=== PATIENT | female | born 1980 | race Caucasian/White ===

== ENCOUNTER 2020-08-09 18:22 | Emergency (ER) | payer OTHER, SELFPAY ==
[2020-08-09 18:24] VITALS: BP 120/68; PULSE 76; RESP 17; TEMP 36.1; O2SAT 99; BMI 33.5
--- NOTE | 2020-08-09 18:56 | ED.EAR ---
HPI - Ear Problem General Chief complaint: Ear Problems Stated complaint: sinus pain, ear pain Time Seen by Provider: 08/09/20 18:56 Source: patient Mode of arrival: ambulatory Limitations: no limitations History of Present Illness HPI Narrative: States she is having sinus pain in the frontal forehead area which she annular gets and often times this is accompanied with ear pain/ear infection she called her primary care doctor who gave her a Z-Urbano however symptoms continue just finished a Z-Urbano yesterday. She states she was tested for COVID 2 weeks ago and does not mind getting tested today. Denies any fever chills no neck pain. No chest pain or shortness of breath. Location: right ear Severity: moderate Discharge from ear: no Treatment prior to arrival: other (Azithromycin Z-Urbano) Related Data Previous Rx's Medication Instructions Recorded amoxicillin 500 mg PO Q12H 10 Days #20 tab 08/09/20 Allergies Allergy/AdvReac Type Severity Reaction Status Date / Time tramadol [TRAMADOL] Allergy Intermediate ON Unverified 05/16/20 15:39 WELLBUTIIN paroxetine [Paxil] Allergy Unknown rash Verified 06/19/13 00:00 acetaminophen [From TYLENOL] AdvReac Unknown UPSET Unverified 05/16/20 15:39 STOMACH/VOMITING garlic AdvReac Unknown UPSET Unverified 05/16/20 15:39 STOMACH From PAXIL Allergy Unknown UNKNOWN Uncoded 05/16/20 15:39 Review of Systems Review of Systems: Constitutional: No Weight loss, No Fever, No Chills, No Night Sweats, No Fatigue, No Malaise ENT/Mouth: No Hearing loss, + r Ear Pain, No Nasal Congestion, + Sinus Pain, No Hoarseness, No sore throat, No Rhinorrhea, No Swallowing Difficulty Eyes: No Eye Pain, No Swelling, No Redness, No Foreign Body, No Discharge, No Vision Changes Cardiovascular: No Chest Pain, No SOB, No Dyspnea on Exertion, No Orthopnea, No Edema, No Palpitations Respiratory: No Cough, No Sputum, No Wheezing, No Smoke Exposure, No Dyspnea Gastrointestinal: No Nausea, No Vomiting, No Diarrhea, No Constipation, No abdominal Pain, No Hematochezia, No Melena Genitourinary: no irregular bleeding, No Dysuria, No Urinary Frequency, No Hematuria, No Urinary Incontinence Musculoskeletal: No joint pain, No Myalgias, No Joint Swelling Skin: No Skin Lesions, No rash Neuro: No Weakness, No Numbness, No Paresthesias, No Loss of Consciousness, No Dizziness, No Headache Psych: No Social Issues Heme/Lymph: No Bruising, No Bleeding,No Lymphadenopathy Endocrine: No Polyuria, No Polydipsia, No Temperature Intolerance Yes all other systems are reviewed and are negative PMFSH Past Medical History Surgical History (Updated 08/09/20 @ 18:27 by Joey Swift) H/O tubal ligation H/O: hysterectomy Physical Exam Vital Signs: Vital Signs: Last Vital Signs Temp 97 F 08/09/20 18:24 Pulse 76 08/09/20 18:24 Resp 17 08/09/20 18:24 BP 120/68 08/09/20 18:24 Pulse Ox 99 08/09/20 18:24 Body Mass Index 33.5 reviewed Const: General: cooperative and healthy appearing; No acute distress or intoxicated appearing Nutritional Appearance: average body habitus Orientation/consciousness: patient oriented x3 HENMT: Head: Yes normal to inspection Ears: hearing grossly normal bilaterally and TM normal on the right (Slightly bulging with erythema) Face and sinus: Yes face symmetric and Yes Facial tenderness on exam of face and sinuses (Over the bilateral frontal sinuses) Eyes: General: appearance normal, both eyes and all related structures Visual Nguyen: normal visual nguyen by confrontation Neck: Neck: Yes normal visual inspection, No positive Brudzinski's sign, No positive Kernig's sign and No tender Thyroid: Thyroid normal Chest: Chest palpation & inspection: normal inspection of the chest Resp: Effort & Inspection: normal respiratory effort Cardio: Jugular venous distension: no JVD Skin: General skin exam: no rashes or lesions noted Neuro: General: patient oriented x3 Extrem: General: Yes normal to inspection Discharge Plan Discharge Clinical Impression: Otitis media, Acute bacterial sinusitis Patient Disposition: Home, Self-Care Instructions: Sinusitis (ED), Ear Infection (ED) Additional Instructions: Take medication as prescribed We have repeated her COVID test this may take up to 3-5 days to result we will call with results even if negative or positive Self-isolation Social distancing Remain out of work until you have a negative COVID test Thank you Prescriptions: New amoxicillin 500 mg tablet 500 mg PO Q12H 10 Days Qty: 20 RF: 0 Referrals: Physician,Unknown [Primary Care Provider] - 1 week (Phone visit with primary care ) Stand Alone Forms: Work/School Release
== END 2020-08-09 19:34 | disposition home or self-care (01) ==
PROVIDERS: Nurse Practitioner Primary Care; Emergency Provider Internal Medicine; PCP Pediatrics
DX: H66.93 Otitis media, unspecified, bilateral (principal); J01.90 Acute sinusitis, unspecified; Z20.828 Contact with and (suspected) exposure to other viral communicable diseases
CPT/HCPCS: 99283; 99284; U0003

== ENCOUNTER 2021-10-09 11:52 | Outpatient (REF) | payer OTHER, SELFPAY ==
--- NOTE | ~2021-10-09 | XR_ITS ---
EXAMINATION: XR LUMBOSACRAL SPINE XR RIGHT ELBOW XR LEFT KNEE CLINICAL INFORMATION: Trauma. Fell on ice. COMPARISON: None TECHNIQUE: 5 views of the lumbosacral spine, 3 views of the right elbow and 3 views of the left knee were obtained. FINDINGS: Lumbosacral spine: Mild mid lumbar rotatory levoscoliosis is present. The heights of the lumbar vertebrae are within normal limits. Mild degenerative disc disease is noted at L5-S1 and mild facet degenerative arthritic is at lower lumbar spine. Intervertebral disc heights are otherwise unremarkable. The paraspinal soft tissues are unremarkable. Right elbow: The bony alignments are intact. The cortices are intact. Articular margins, joint space appear unremarkable. Mild soft tissue swelling is noted overlying the olecranon process, may represent soft tissue injury versus olecranon bursitis. Left knee: The bony alignments are intact. The cortices are intact. Articular margins, joint space appear unremarkable. No evidence of any joint effusion. Soft tissues are unremarkable. XR/XR elbow RT min 3V IMPRESSION: 1. No radiographic evidence of any lumbosacral spine fracture. Mild degenerative disc disease at L5-S1 and mild facet degenerative arthritic changes at lower lumbar spine. 2. Radiographically unremarkable left knee. 3. Mild soft tissue swelling overlying the olecranon process of the right ulna, may represent soft tissue injury versus olecranon bursitis.
--- NOTE | ~2021-10-09 | XR_ITS ---
EXAMINATION: XR LUMBOSACRAL SPINE XR RIGHT ELBOW XR LEFT KNEE CLINICAL INFORMATION: Trauma. Fell on ice. COMPARISON: None TECHNIQUE: 5 views of the lumbosacral spine, 3 views of the right elbow and 3 views of the left knee were obtained. FINDINGS: Lumbosacral spine: Mild mid lumbar rotatory levoscoliosis is present. The heights of the lumbar vertebrae are within normal limits. Mild degenerative disc disease is noted at L5-S1 and mild facet degenerative arthritic is at lower lumbar spine. Intervertebral disc heights are otherwise unremarkable. The paraspinal soft tissues are unremarkable. Right elbow: The bony alignments are intact. The cortices are intact. Articular margins, joint space appear unremarkable. Mild soft tissue swelling is noted overlying the olecranon process, may represent soft tissue injury versus olecranon bursitis. Left knee: The bony alignments are intact. The cortices are intact. Articular margins, joint space appear unremarkable. No evidence of any joint effusion. Soft tissues are unremarkable. XR/XR knee LT 3V IMPRESSION: 1. No radiographic evidence of any lumbosacral spine fracture. Mild degenerative disc disease at L5-S1 and mild facet degenerative arthritic changes at lower lumbar spine. 2. Radiographically unremarkable left knee. 3. Mild soft tissue swelling overlying the olecranon process of the right ulna, may represent soft tissue injury versus olecranon bursitis.
--- NOTE | ~2021-10-09 | XR_ITS ---
EXAMINATION: XR LUMBOSACRAL SPINE XR RIGHT ELBOW XR LEFT KNEE CLINICAL INFORMATION: Trauma. Fell on ice. COMPARISON: None TECHNIQUE: 5 views of the lumbosacral spine, 3 views of the right elbow and 3 views of the left knee were obtained. FINDINGS: Lumbosacral spine: Mild mid lumbar rotatory levoscoliosis is present. The heights of the lumbar vertebrae are within normal limits. Mild degenerative disc disease is noted at L5-S1 and mild facet degenerative arthritic is at lower lumbar spine. Intervertebral disc heights are otherwise unremarkable. The paraspinal soft tissues are unremarkable. Right elbow: The bony alignments are intact. The cortices are intact. Articular margins, joint space appear unremarkable. Mild soft tissue swelling is noted overlying the olecranon process, may represent soft tissue injury versus olecranon bursitis. Left knee: The bony alignments are intact. The cortices are intact. Articular margins, joint space appear unremarkable. No evidence of any joint effusion. Soft tissues are unremarkable. XR/XR lumbar spine 4V min IMPRESSION: 1. No radiographic evidence of any lumbosacral spine fracture. Mild degenerative disc disease at L5-S1 and mild facet degenerative arthritic changes at lower lumbar spine. 2. Radiographically unremarkable left knee. 3. Mild soft tissue swelling overlying the olecranon process of the right ulna, may represent soft tissue injury versus olecranon bursitis.
== END 2021-10-09 11:53 | disposition home or self-care (01) ==
LOC: HO.XRAY 11:52
PROVIDERS: PCP Emergency Medicine; Visit Provider Pediatrics
DX: M25.521 Pain in right elbow (principal); M25.562 Pain in left knee; M54.42 Lumbago with sciatica, left side
CPT/HCPCS: 72110; 73080; 73562

== ENCOUNTER 2023-12-03 12:01 | Outpatient (REF) | payer OTHER, SELFPAY ==
[2023-12-03 14:31] LABS: MANUAL DIFF FLAG NO
[2023-12-03 14:38] LABS: Basophils Percent Auto 0.3 % (0-2); Eosinophils Absolute Auto 0.2 X10*3/uL (0.0-0.4); Eosinophils Percent Auto 1.6 % (0-4); Hematocrit 36.1 % (37.0-47.0); Imm Gran Abs Auto 0.03 X10*3/uL (0.00-0.03); Imm Gran Pct Auto 0.3 % (0.0-0.4); Lymphocytes Absolute Auto 2.7 X10*3/uL (1.2-4.9); Lymphocytes Percent Auto 28.3 % (20-40); Mean Corpuscular HGB Conc 30.5 g/dl (31.0-35.0); Mean Corpuscular Hemoglobin 25.6 pg (27.0-33.0); Mean Platelet Volume 10.2 fL (9.4-12.3); Monocytes Absolute Auto 0.8 X10*3/uL (0.1-1.2); Monocytes Percent Auto 8.3 % (2-11); Neutrophils Absolute Auto 5.9 x10*3/uL (2.0-8.3); Neutrophils Percent Auto 61.2 % (45-73); Platelet Count 237 X10*3/uL (160-400); Red Cell Distribution Width 16.1 % (11.0-16.0); White Blood Count 9.6 X10*3/uL (4.8-10.8)
[2023-12-03 15:13] LABS: Alanine Aminotransferase 58 U/L (0-31); Albumin Level 3.7 g/dL (3.5-5.0); Alkaline Phosphatase 95 U/L (39-117); Anion Gap 11 (12-20); Aspartate Amino Transferase 39 U/L (5-31); Bilirubin Total 0.3 mg/dL (0.0-1.0); Blood Urea Nitrogen 13 mg/dL (9-16); Carbon Dioxide 27 mmol/L (22-29); Chloride 105 mmol/L (96-108); Estimated Glomerular Filt Rate > 60; Glucose Random 72 mg/dL (60-115); Potassium 3.8 mmol/L (3.3-5.1); Sodium 139 mmol/L (135-145); Total Protein 7.2 g/dL (6.5-8.0)
[2023-12-03 15:33] LABS: TSH reflex Free T4 1.47 uIU/mL (0.32-4.0)
[2023-12-03 17:14] LABS: CT PCR NOT DETECTED (Not Detect.); NG PCR NOT DETECTED (Not Detect.)
[2023-12-04 09:33] LABS: HBS Num1 147.63 mIU/mL (0-7.99); HBc Num1 0.14 S/CO (0.00-0.79); HBsAGNum1 0.34 S/CO (0.00-0.99); HIV AB/AG Nonreactive (Nonreactive); HIV Num 1 0.09 S/CO (0.00-0.99); Hepatitis A Antibody IgM 0.25 Index (0-0.79); Hepatitis B Core Antibody Nonreactive (Nonreactive); Hepatitis B Surface Antigen Negative (Negative); ~HepC Num1 15.26 S/CO (0.00-0.79); ~Hepatitis A Antibody IgM Nonreactive (Nonreactive); ~Hepatitis B Surface Antibody REACTIVE (Nonreactive); ~Hepatitis C Antibody Reactive (Nonreactive)
[2023-12-04 09:51] LABS: Syphilis Screen Nonreactive (Nonreactive)
[2023-12-07 16:03] LABS: HCV Log PCR 4.59 Log IU/mL (NOT DETECTED); HepC Viral Load 39300 IU/mL (NOT DETECTED)
== END 2023-12-03 12:02 | disposition home or self-care (01) ==
LOC: HO.CHCLDS 12:01
PROVIDERS: Visit Provider Pediatrics
DX: Z11.4 Encounter for screening for human immunodeficiency virus [HIV] (principal); Z20.2 Contact with and (suspected) exposure to infections with a predominantly sexual mode of transmission
CPT/HCPCS: 0353U; 36415; 80053; 84443; 85025; 86704; 86706; 86709; 86780; 86803; 87340; 87389; 87522